=== PATIENT | male | born 1955 | race Hispanic/Latino ===

== ENCOUNTER 2019-01-09 17:05 | Emergency (ER) | payer OTHER ==
[2019-01-09] MEDS ORDERED: BABY ASPIRIN PO STA (17:41)
--- NOTE | 2019-01-09 17:45 | Emergency Department Report ---
Blank Doc - Documentation Documentation: 63 Y/O MALE C/O OF MIDDLE TO LEFT SIDED CHEST PAIN FOR THE LAST 3 DAYS .DENIES REFLUX SYMPTOMS. CP ASSOCIATED WITH EPISODES OF SOB. NO DIZZINESS. PLAN . CARDIAC EVALUATION
--- NOTE | 2019-01-09 18:24 | XRay Report ---
PROCEDURE: XR CHEST ROUTINE 2V TECHNIQUE: PA and lateral chest radiographs were obtained. HISTORY: Chest Pain COMPARISONS: None. FINDINGS: No infiltrate, pleural effusion, or pneumothorax seen. The cardiomediastinal silhouette is normal. The bones are grossly intact. IMPRESSION: Negative chest.. This document is electronically signed by Bin Cisse MD., January 09 2019 06:22:27 PM ET
[2019-01-09 19:02] LABS: Basophils % (Auto) 0.8 % (0.0-1.8); Eosinophils # (Auto) 0.1 K/mm3 (0.0-0.4); Eosinophils % (Auto) 1.8 % (0.0-4.3); Hematocrit 43.7 % (35.5-45.6); Hemoglobin 15.1 gm/dl (11.8-15.2); Lymphocytes # (Auto) 1.2 K/mm3 (1.2-5.4); Lymphocytes % (Auto) 24.7 % (13.4-35.0); Mean Corpuscular HGB Conc 35 % (32-34); Mean Corpuscular Volume 85 fl (84-94); Monocytes # (Auto) 0.6 K/mm3 (0.0-0.8); Monocytes % (Auto) 13.2 % (0.0-7.3); Platelet Count 207 K/mm3 (140-440); Red Blood Count 5.12 M/mm3 (3.65-5.03); Red Cell Distribution Width 13.2 % (13.2-15.2)
[2019-01-09 19:17] LABS: Alanine Aminotransferase 28 units/L (7-56); BUN/Creatinine Ratio 11; Blood Urea Nitrogen 14 mg/dL (9-20); Calcium 9.1 mg/dL (8.4-10.2); Hemolysis Index 13
[2019-01-09] MEDS ORDERED: IBUPROFEN PO ONE (20:55)
[2019-01-09] MEDS ORDERED: CATAPRES PO ONE (20:55)
--- NOTE | 2019-01-09 21:38 | Emergency Department Report ---
ED Chest Pain HPI - General Chief Complaint: Chest Pain Stated Complaint: CHEST PAIN Time Seen by Provider: 01/09/19 17:41 Source: patient Mode of arrival: Ambulatory Limitations: No Limitations - History of Present Illness Initial Comments: 63-year-old male presents to ED with complaint of pain all over. Patient states he is having pain in his chest, back, abdomen, legs. States chest pain is all over his chest, abdominal pain is all over his abdomen, back pain is all over his back. Patient states pain started a few days ago. States pain feels like muscle soreness. Worse with movement or palpation. He also reports headache as well. Denies shortness of breath, nausea, vomiting, fever. MD Complaint: chest pain -: days(s) (3) Onset: during rest Pain Location: substernal, left chest, right chest Pain Radiation: none Severity: moderate Severity scale (0 -10): 10 Quality: other (muscle soreness) Consistency: constant Improves With: nothing Worsens With: palpation, movement re: denies: nausea, vomting, diaphoresis, dyspnea Other Symptoms: cough. denies: fever, leg swelling - Related Data Previous Rx's Medication Instructions Recorded Last Taken Type Sulfamethoxazole/Trimethoprim 1 each PO BID #14 tablet 09/08/16 Unknown Rx [Bactrim DS TAB] hydroCHLOROthiazide [HCTZ] 25 mg PO QDAY #30 tablet 01/10/19 Unknown Rx Allergies Allergy/AdvReac Type Severity Reaction Status Date / Time ranitidine HCl [From Zantac] Allergy Itching Verified 01/09/19 17:08 codeine AdvReac Shortness Verified 01/09/19 17:08 of Breath Heart Score - HEART Score History: Slightly suspicious EKG: Normal Age: 45-65 Risk factors: 1-2 risk factors Troponin: < normal limit HEART Score: 2 ED Review of Systems ROS: Stated complaint: CHEST PAIN Other details as noted in HPI Comment: All other systems reviewed and negative Constitutional: weakness. denies: chills, fever Respiratory: cough. denies: shortness of breath Cardiovascular: chest pain Gastrointestinal: abdominal pain. denies: nausea, vomiting Musculoskeletal: back pain Neurological: headache ED Past Medical Hx - Past Medical History Hx Hypertension: Yes Hx Heart Attack/AMI: Yes (atypical chest pain) Hx Congestive Heart Failure: No Hx Diabetes: No Hx GERD: Yes Hx Seizures: Yes (as a child) Hx Kidney Stones: Yes Hx Asthma: No Hx COPD: No Hx Dementia: No - Surgical History Additional Surgical History: renal stents, prostate surgery, renal cyst removed, right second toe amputation - Social History Smoking Status: Former Smoker - Medications Home Medications: Home Medications Medication Instructions Recorded Confirmed Last Taken Type Sulfamethoxazole/Trimethoprim 1 each PO BID #14 tablet 09/08/16 Unknown Rx [Bactrim DS TAB] hydroCHLOROthiazide [HCTZ] 25 mg PO QDAY #30 tablet 01/10/19 Unknown Rx ED Physical Exam - General Limitations: No Limitations General appearance: alert, in no apparent distress - Head Head exam: Present: atraumatic, normocephalic - Eye Eye exam: Present: normal appearance, PERRL, EOMI - ENT ENT exam: Present: mucous membranes moist - Neck Neck exam: Present: normal inspection, full ROM - Respiratory Respiratory exam: Present: normal lung sounds bilaterally, chest wall tenderness (pt exhibits tenderness of the entire anterior chest wall with the slightest touch; no bruising/rash/ crepitus to chest wall). Absent: respiratory distress - Cardiovascular Cardiovascular Exam: Present: regular rate, normal rhythm - GI/Abdominal GI/Abdominal exam: Present: soft, tenderness (mild diffuse). Absent: distended - Extremities Exam Extremities exam: Present: normal inspection, full ROM - Back Exam Back exam: Present: normal inspection, paraspinal tenderness - Neurological Exam Neurological exam: Present: alert, oriented X3, CN II-XII intact. Absent: motor sensory deficit - Psychiatric Psychiatric exam: Present: normal affect, normal mood - Skin Skin exam: Present: warm, dry, intact, normal color ED Course Vital Signs 01/09/19 01/09/19 01/09/19 17:24 20:20 20:30 Temperature 98 F 97.9 F Pulse Rate 106 H 64 75 Respiratory 18 14 15 Rate Blood Pressure 158/87 198/113 Blood Pressure 198/113 [Left] O2 Sat by Pulse 96 99 97 Oximetry 01/09/19 01/09/19 01/09/19 21:24 21:30 22:00 Temperature Pulse Rate 68 Respiratory Rate Blood Pressure 159/98 159/98 137/79 Blood Pressure [Left] O2 Sat by Pulse 97 98 Oximetry 01/09/19 22:30 Temperature Pulse Rate Respiratory Rate Blood Pressure 125/79 Blood Pressure [Left] O2 Sat by Pulse 97 Oximetry BENJI score - Benji Score Age > 65: (0) No Aspirin use within the Past 7 Days: (0) No 3 or more CAD Risk Factors: (0) No 2 or more Angina events in past 24 hrs: (0) No Known CAD with more than 50% Stenosis: (0) No Elevated Cardiac Markers: (0) No ST Deviation Greater than 0.5mm: (0) No BENJI Score: 0 ED Medical Decision Making - Lab Data Result diagrams: 01/09/19 18:50 01/09/19 18:50 - EKG Data -: EKG Interpreted by Md EKG shows normal: sinus rhythm, axis, intervals, QRS complexes, ST-T waves Rate: normal - EKG Data Interpretation: no acute changes - Radiology Data Radiology results: report reviewed, image reviewed - Medical Decision Making 63 yo M with diffuse body pain. Labs unremarkable. EKG normal, troponin negative x 2. Pt denies having PCP. BP found to be elevated. Clonidine given. Pt comfortable, nontoxic. Will discharge at this time and advise outpt follow- up. Return precautions given. Will start BP meds. Critical care attestation.: If time is entered above; I have spent that time in minutes in the direct care of this critically ill patient, excluding procedure time. ED Disposition Clinical Impression: Chest pain, Generalized pain, Hypertension Disposition: TO HOME OR SELFCARE Is pt being admited?: No Condition: Stable Instructions: Chest Pain (ED), Hypertension (ED) Prescriptions: hydroCHLOROthiazide [HCTZ] 25 mg PO QDAY #30 tablet Referrals: HANK CANSECO MD [Primary Care Provider] - 3-5 Days Time of Disposition: 00:33
[2019-01-09 21:47] LABS: Amphetamine Screen,Urine PRESUMPTIVE NEGATIVE; Benzodiazepines Screen,Urine PRESUMPTIVE NEGATIVE; Cannabinoid Screen,Urine PRESUMPTIVE NEGATIVE; Cocaine Screen,Urine PRESUMPTIVE NEGATIVE; Methadone Screen,Urine PRESUMPTIVE NEGATIVE; Opiate Screen,Urine PRESUMPTIVE NEGATIVE
[2019-01-10 00:49] VITALS: BP 121/76
== END 2019-01-10 00:50 | disposition home or self-care (01) ==
LOC: ED 17:05
DX: I95.9 Hypotension, unspecified (principal); R07.89 Other chest pain; R52 Pain, unspecified; I11.0 Hypertensive heart disease with heart failure; K21.9 Gastro-esophageal reflux disease without esophagitis; Z87.442 Personal history of urinary calculi; Z98.890 Other specified postprocedural states; Z79.899 Other long term (current) drug therapy; Z87.891 Personal history of nicotine dependence; Z88.6 Allergy status to analgesic agent; Z88.4 Allergy status to anesthetic agent
CPT/HCPCS: 36415; 71046; 80053; 80307; 83690; 84484; 85025; 93005; 93010